=== PATIENT | female | born 1960 | race Caucasian/White ===

== ENCOUNTER 2017-11-12 05:31 | Inpatient (IN) | payer BC, OTHER ==
[2017-11-12] MEDS ORDERED: Albuterol 0.083% Inhal Sol (2.5 mg/3 mL) UD INH STA ×2 (06:02→06:08)
[2017-11-12] MEDS ORDERED: Magnesium Sulfate 2 GM in Sodium Chloride 0.9% 100 ML IVPB ONE (06:02)
[2017-11-12] MEDS: Albuterol-Ipratrop 3 mg / 0.5 (3 ml) UD IH STA ×2 (06:11→06:33)
--- NOTE | 2017-11-12 06:13 | ED PDOC ---
Arrival/HPI - General Chief Complaint: Shortness Of Breath Time Seen by Provider: 11/12/17 05:43 Historian: Patient - History of Present Illness Narrative History of Present Illness (Text): 11/12/17 06:11 A 57 year old female was brought in by EMS to the emergency department complaining of cough and nasal congestion. Patient saw Dr. Collins, who diagnosed patient with bronchitis 2 weeks ago and was given Zithromax and steroids. Reports improvement of symptoms. [place] [facility] [place] had a negative chest xray and was given Tessalon Perles for cough and Flonase inhaler for nose, notes she has been coughing since she [place] [facility] [place] Patient reports she hasn't been able to sleep. Reports to using rescue inhaler with no relief. Patient denies any other complaints at this time. Time/Duration: Other (yesterday) Symptom Onset: Sudden Symptom Course: Unchanged Activities at Onset: Rest Past Medical History - Provider Review Nursing Documentation Reviewed: Yes - Infectious Disease Hx of Infectious Diseases: None - Tetanus Immunization Tetanus Immunization: Unknown - Cardiac Hx Cardiac Disorders: No - Pulmonary Hx Respiratory Disorders: Yes Hx Asthma: Yes Hx Bronchitis: Yes - Neurological HX Cerebrovascular Accident: Yes (1 year ago) Hx Seizures: Yes - HEENT Hx HEENT Disorder: No - Renal Hx Renal Disorder: No - Endocrine/Metabolic Hx Endocrine Disorders: No - Hematological/Oncological Hx Blood Disorders: No - Integumentary Hx Dermatological Disorder: No - Musculoskeletal/Rheumatological Hx Falls: Yes (this past winter fell once) - Gastrointestinal Hx Gastrointestinal Disorders: No - Genitourinary/Gynecological Hx Genitourinary Disorders: No - Psychiatric Hx Psychophysiologic Disorder: No Hx Substance Use: No - Past Surgical History Past Surgical History: No Previous - Suicidal Assessment Feels Threatened In Home Enviroment: No Family/Social History - Physician Review Nursing Documentation Reviewed: Yes Family/Social History: No Known Family HX Smoking Status: Never Smoked Hx Alcohol Use: No Hx Substance Use: No Hx Substance Use Treatment: No Allergies/Home Meds Allergies/Adverse Reactions: Allergies Penicillins Adverse Reaction (Verified 11/12/17 05:48) ITCHING Sulfa (Sulfonamide Antibiotics) Adverse Reaction (Verified 11/12/17 05:48) NAUSEA Home Medications: Home Meds Medication Instructions Recorded Confirmed Oxcarbazepine [Trileptal] 300 mg PO BID 03/28/15 11/12/17 Apixaban [Eliquis] 5 mg PO Q3 11/12/17 11/12/17 Ergocalciferol [Drisdol 50,000 1 cap PO QWK 11/12/17 11/12/17 Intl Units Cap] Folic Acid [Folic Acid] 1 mg PO DAILY 11/12/17 11/12/17 Hydroxychloroquine Sulfate 200 mg PO BID 11/12/17 11/12/17 [Plaquenil] Montelukast [Singulair] 10 mg PO DAILY 11/12/17 11/12/17 predniSONE [predniSONE Tab] 1 mg PO DAILY 11/12/17 11/12/17 predniSONE [predniSONE Tab] 5 mg PO DAILY 11/12/17 11/12/17 Review of Systems - Physician Review All systems were reviewed & negative as marked: Yes - Review of Systems ENT: Sinus Congestion Respiratory: Cough Physical Exam Vital Signs Reviewed: Yes Vital Signs Temp Pulse Resp BP Pulse Ox 11/12/17 05:31 98.3 F 104 H 20 154/101 H 97 Temperature: Afebrile Blood Pressure: Hypertensive Pulse: Tachycardic Respiratory Rate: Normal Appearance: Positive for: Well-Appearing, Non-Toxic, Comfortable Pain Distress: None Mental Status: Positive for: Alert and Oriented X 3 - Systems Exam Head: Present: Atraumatic, Normocephalic Pupils: Present: PERRL Extroacular Muscles: Present: EOMI Conjunctiva: Present: Normal Mouth: Present: Moist Mucous Membranes Neck: Present: Normal Range of Motion Respiratory/Chest: Present: Wheezes (all lung srinivasan, front and back). No: Respiratory Distress, Accessory Muscle Use Cardiovascular: Present: Regular Rate and Rhythm, Normal S1, S2. No: Murmurs Abdomen: Present: Normal Bowel Sounds. No: Tenderness, Distention, Peritoneal Signs Back: Present: Normal Inspection Upper Extremity: Present: Normal Inspection. No: Cyanosis, Edema Lower Extremity: Present: Normal Inspection. No: Edema Neurological: Present: GCS=15, CN II-XII Intact, Speech Normal Skin: Present: Warm, Dry, Normal Color. No: Rashes Psychiatric: Present: Alert, Oriented x 3, Normal Insight, Normal Concentration Medical Decision Making ED Course and Treatment: 11/12/17 06:09 Impression: A 57 year old female with cough and nasal congestion. Plan: -- EKG -- chest xray -- labs -- Albuterol, Duoneb, Solumedrol, IV fluids -- Reassess and disposition Prior Visits: Notes and results from previous visits were reviewed. Patient was last seen in the emergency department on 04/02/15 for evaluation of shortness of breath. Progress Notes: 11/12/17 06:30 EKG: Ordered, reviewed, and independently interpreted the EKG. Rate : 101 BPM Rhythm : sinus tachycardia Interpretation : Normal intervals, normal axis 11/12/17 07:00 Case signed out to Dr. Burciaga, awaiting clinical improvement and response indications. - Lab Interpretations I have reviewed the lab results: Yes - RAD Interpretation Radiology Orders: 11/12/17 06:02 CHEST TWO VIEWS (PA/LAT) [RAD] Stat - EKG Interpretation Interpreted by ED Physician: Yes Type: 12 lead EKG - Medication Orders Current Medication Orders: Discontinued Medications Albuterol Sulfate (Albuterol 0.083% Inhal Acssandra (2.5 Mg/3 Ml) Ud) 2.5 mg INH STAT STA Stop: 11/12/17 06:03 Last Admin: 11/12/17 06:32 Dose: 2.5 mg Albuterol Sulfate (Albuterol 0.083% Inhal Cassandra (2.5 Mg/3 Ml) Ud) 2.5 mg INH STAT STA Stop: 11/12/17 06:09 Albuterol/Ipratropium (Duoneb 3 Mg/0.5 Mg (3 Ml) Ud) 3 ml IH STAT STA Stop: 11/12/17 06:03 Last Admin: 11/12/17 06:11 Dose: 3 ml Magnesium Sulfate 2 gm/ Sodium (Chloride) 104 mls @ 102 mls/hr IVPB ONCE ONE Stop: 11/12/17 07:03 Last Admin: 11/12/17 06:15 Dose: 102 mls/hr eMAR Start Stop Document 11/12/17 06:15 JOL (Rec: 11/12/17 06:32 JOL [id number]) Intravenous Solution Start Date 11/12/17 Start Time 06:15 End Date 11/12/17 End time 07:17 Total Infusion Time 62 Methylprednisolone (Solu-Medrol) 125 mg IVP STAT STA Stop: 11/12/17 06:03 Last Admin: 11/12/17 06:15 Dose: 125 mg IVP Administration Document 11/12/17 06:15 HIRAM (Rec: 11/12/17 06:32 HIRAM [id number]) Charges for Administration # of IVP Administrations 1 - PA / FINANCE EXECUTIVE / Resident Statement MD/DO has reviewed & agrees with the documentation as recorded. - Scribe Statement The provider has reviewed the documentation as recorded by the Peggyibdre Jasmine Provider Scribe Attestation: All medical record entries made by the Peggyibdre were at my direction and personally dictated by me. I have reviewed the chart and agree that the record accurately reflects my personal performance of the history, physical exam, medical decision making, and the department course for this patient. I have also personally directed, reviewed, and agree with the discharge instructions and disposition. Disposition/Present on Arrival - Present on Arrival Any Indicators Present on Arrival: No History of DVT/PE: No History of Uncontrolled Diabetes: No Urinary Catheter: No History of Decub. Ulcer: No History Surgical Site Infection Following: None - Disposition Have Diagnosis and Disposition been Completed?: Yes Diagnosis: Bronchospasm with bronchitis, acute Disposition: HOSPITALIZED Disposition Time: 06:48 Patient Plan: Admission Condition: IMPROVED Referrals: Javid Collins MD [Primary Care Provider] - Follow up with primary Forms: [place] CK[employer] ([place])
[2017-11-12 06:59] LABS: VENOUS BLOOD GAS BASE EXCESS 4.3 mmol/L (0.0-2.0); VENOUS BLOOD GAS PO2 31 mm/Hg (30-55); VENOUS BLOOD PH 7.34 (7.32-7.43)
[2017-11-12 07:03] LABS: ALB/GLOB RATIO 1.3 (1.1-1.8); ALT/SGPT 40 U/L (7-56); AST/SGOT 32 U/L (14-36); BLOOD UREA NITROGEN 11 mg/dL (7-21); CALCIUM 9.2 mg/dL (8.4-10.5); GFR AFRICAN-AMERICAN > 60; GFR NON-AFRICAN AMERICAN > 60
[2017-11-12 07:07] LABS: B-TYPE NATRIURETIC PEPTIDE 38.3 pg/mL (0-450); TROPONIN I < 0.01 ng/mL
[2017-11-12 07:09] LABS: D DIMER < 200 ng/mL (0-243); INR 2.25 (0.93-1.08); PROTHROMBIN TIME 26.3 SECONDS (9.4-12.5)
[2017-11-12 07:13] LABS: BASO # 0.03 K/mm3 (0.0-2.0); BASO % 0.4 % (0.0-3.0); EOS # 0.3 (0.0-0.7); EOS % 3.8 % (1.5-5.0); GRAN # 5.7 (1.4-6.5); GRAN % 75.5 % (50.0-68.0); LYMPH # 0.8 (1.2-3.4); LYMPH % 10.9 % (22.0-35.0); MEAN CELL VOLUME 91.8 fl (80.0-105.0); MEAN CORPUSCULAR HEMOGLOBIN 30.2 pg (25.0-35.0); MEAN CORPUSCULAR HGB CONC 32.9 g/dl (31.0-37.0); MEAN PLATELET VOLUME 9.4 fl (7.0-11.0); MONO # 0.7 (0.1-0.6); MONO % 9.4 % (1.0-6.0); RBC 4.64 10^6/uL (3.5-6.1); RED CELL DISTRIBUTION WIDTH 13.7 % (11.5-14.5); WHITE BLOOD COUNT 7.6 10^3/ul (4.5-11.0)
--- NOTE | 2017-11-12 08:53 | RAD ---
HISTORY: wheezing all lung srinivasan COMPARISON: 04/02/2015 TECHNIQUE: Chest PA and lateral FINDINGS: LUNGS: No active pulmonary disease. PLEURA: No significant pleural effusion identified. No pneumothorax apparent. CARDIOVASCULAR: Normal. OSSEOUS STRUCTURES: No significant abnormalities. VISUALIZED UPPER ABDOMEN: Normal. OTHER FINDINGS: None. IMPRESSION: No active disease.
[2017-11-12 09:55] VITALS: BMI 29.2
[2017-11-12] MEDS: Albuterol-Ipratrop 3 mg / 0.5 (3 ml) UD IH SCH ×2 (13:26→20:00)
[2017-11-12] MEDS ORDERED: Albuterol 0.083% Inhal Sol (2.5 mg/3 mL) UD ONE (17:33)
--- NOTE | 2017-11-12 18:11 | CARD ---
APPROVED REPORT EKG Measurement Heart [id number] <Conclusion> Sinus tachycardia Cannot rule out Inferior infarct, age undetermined Abnormal ECG
--- NOTE | 2017-11-12 18:19 | HP ---
CHIEF COMPLAINT AND HISTORY OF PRESENT ILLNESS: This is a 57-year-old female who is coming to the hospital because of cough, congestion, and wheezing. She states that she was treated for bronchitis by me about 2 weeks ago with antibiotics and steroids. She said that she did improve, but then her symptoms worsened. She denies any chest pain or shortness of breath. She said that she had gone to [facility] satellite ER and was discharged. She was given Tessalon Perles for cough and Flonase inhaler. She has not been able to sleep well because of the coughing and the congestion. She has no complaints of any abdominal pain, no back pain. No dysuria, frequency, or nocturia. REVIEW OF SYSTEMS: All other review of symptoms are within normal limits, except what is mentioned. ALLERGIES: PENICILLIN AND SULFA. HOME MEDICATIONS: Have been reviewed. She is on Coumadin for CVA, she states. PAST MEDICAL HISTORY: Seizure disorder, CVA. SOCIAL HISTORY: The patient does not smoke or drink. FAMILY HISTORY: Mother is alive at 94 - she has diabetes. Father is alive and has coronary artery disease, he is in his mid-90s. PHYSICAL EXAMINATION: VITAL SIGNS: Temperature of 98.3, pulse of 104, blood pressure 120/79, respirations 18, O2 saturation 98%, height is 5 feet 6 inches, weight is 181 pounds, and BMI is 29.2. GENERAL: The patient lying in bed, uncomfortable, and in no acute distress. HEENT: Atraumatic and normocephalic. Anicteric sclerae. Moist mucosa. Finger conjunctivae. No oral lesions. NECK: No JVD, anterior and posterior adenopathy, thyromegaly, or bruits. CARDIOVASCULAR: S1 and S2 regular. No murmur, rubs, or gallop. LUNGS: Decreased air entry. No rales. A few rhonchi. No wheezing. ABDOMEN: Bowel sounds are positive. Soft, nontender and nondistended. No hepatosplenomegaly. No rebound and no guarding EXTREMITIES: No cyanosis, clubbing, or edema. NEUROLOGIC: No facial asymmetry. Tongue is midline. No uvula deviation. Power is 5/5 upper extremity and lower extremity. Sensation intact in upper extremity and lower extremity. PSYCHIATRIC: She is awake, alert and oriented x3. No anxiety or depression. She has normal affect. GENITOURINARY: No CVA tenderness. VASCULAR: 2+ pulses in the carotid pulses and pedal pulses. SKIN: No erythema or nodules. SPINE: Shows normal curvature. LABORATORY DATA: White count of 7.6, hemoglobin 14. INR is 2.25. ABG does show a pH of 7.34, pCO2 is 59, and the venous PaO2 is 31. Chemistry shows sodium 143, potassium is 3.9. LDH is 634. The patient's troponin is 0.01. EKG shows a heart rate of 101, sinus tachycardia. Normal axis. Chest x-ray done shows no active disease. ASSESSMENT: 1. Acute asthma exacerbation. 2. Seizure disorder. PLAN: The patient is currently comfortable. She is having wheezing. She has shortness of breath with congestion. She has an acute asthma exacerbation. The patient wants to continue with Coumadin. She is going to be on nebulizer treatments, on DuoNebs. She is on montelukast. She is on steroids. She wants to continue with her oxcarbazepine for seizures. We will get Dr. Barrios to evaluate. Javid Collins MD
[2017-11-12] MEDS: Albuterol 0.083% Inhal Sol (2.5 mg/3 mL) UD INH PRN (23:54)
[2017-11-13] MEDS: Albuterol 0.083% Inhal Sol (2.5 mg/3 mL) UD INH PRN (03:47)
[2017-11-13 07:02] LABS: HEMOGLOBIN 13.3 g/dL (12.0-16.0); MEAN CELL VOLUME 91.3 fl (80.0-105.0); MEAN CORPUSCULAR HEMOGLOBIN 29.6 pg (25.0-35.0); MEAN CORPUSCULAR HGB CONC 32.4 g/dl (31.0-37.0); MEAN PLATELET VOLUME 9.5 fl (7.0-11.0); RBC 4.5 10^6/uL (3.5-6.1); RED CELL DISTRIBUTION WIDTH 13.6 % (11.5-14.5); WHITE BLOOD COUNT 10.4 10^3/ul (4.5-11.0)
[2017-11-13] MEDS: Albuterol-Ipratrop 3 mg / 0.5 (3 ml) UD IH SCH ×3 (08:48→19:56)
--- NOTE | 2017-11-13 09:05 | CON ---
DATE: 11/12/2017 PULMONARY CONSULTATION REFERRING PHYSICIAN: Javid Collins MD REASON FOR CONSULTATION: Exacerbation of chronic obstructive lung disease. HISTORY OF PRESENT ILLNESS: This is a 57-year-old female with past medical history significant for seizure disorder, also have a history of stroke, carry a diagnosis of bronchitis, started symptom a few weeks ago, was treated with p.o. and inhaled bronchodilators without much response, also seen by [facility], was given benzodiazepines and bronchodilator with persistent symptom, came to [facility] ER where she received IV and inhaled bronchodilator, admitted for continued shortness of breath. Presently lying in the bed, has some cough and shortness of breath. No hemoptysis, no hematemesis, no hematuria, no diarrhea reported. Admit to have snoring, daytime sleepy and tired. No nausea, no vomiting or diarrhea. No leg pain or leg swelling. PAST MEDICAL HISTORY: Seizure disorder, CVA, bronchitis. ALLERGIES: SULFA AND PENICILLIN. SOCIAL HISTORY: Nonsmoker, nondrinker. FAMILY HISTORY: Positive for diabetes, coronary artery disease. MEDICATIONS: She is on Coumadin, DuoNeb, Singulair, Solu-Medrol 40 mg daily, Tessalon Perles 100 mg two times a day and Trileptal 300 mg twice a day. REVIEW OF SYSTEMS: No headache, no rhinitis. Has cough, clear sputum, wheezing, shortness of breath, chest pain. No nausea, no vomiting. No diarrhea. No leg pain,or leg swelling. Admit to have snoring, daytime sleepy and tired. PHYSICAL EXAMINATION: GENERAL: Lying in the bed, no acute distress. VITAL SIGNS: Temperature is 98, heart rate 104, respiratory rate is 18, blood pressure 128/79, pulse ox 98% on nasal cannula. HEENT: Moist mucous membrane. Crowded airway. Mallampati score is IV. NECK: Supple. No JVD. LUNGS: Has a prolonged expiratory phase with some wheezing. HEART: S1 and S2. ABDOMEN: Soft, nontender, no organomegaly. EXTREMITIES: No edema. NEUROLOGIC: Awake, alert, follows simple commands. LABORATORY DATA: Shows hemoglobin 14.0, hematocrit 42.6, WBC 7.6, platelet is 202. INR is 2.25. VBG show pH 7.34, pCO2 59, O2 31. Sodium 143, potassium 3.9, chloride 103, bicarbonate 29, BUN 15, creatinine 0.7, glucose 90, calcium is 9.2. Total bili 0.3, AST 32, ALT 40, alk phos is 85, total protein 7.0, albumin is 4.0. Troponin less than 0.01. less than 3. Chest x-ray done on admission in ER, which shows no infiltrate or effusion. IMPRESSION AND PLAN: Acute bronchitis, probably chronic obstructive lung disease, history of stroke, seizure disorder, may have a component of sleep apnea syndrome. Agree with Dr. Collins with the present management. Continue intravenous and inhaled bronchodilator. Continue antiseizure medication. May start doxycycline. Gastroesophageal reflux disease precaution, deep venous thrombosis prophylaxis. Outpatient sleep study and pulmonary function test. Thank you and we will follow with you. Aurea Barrios MD
[2017-11-13] MEDS ORDERED: MethylPREDNISolone 40 mg Vial IVP SCH (10:00)
--- NOTE | 2017-11-13 11:08 | PN ---
DATE: 11/13/2017 SUBJECTIVE: The patient has no complaints of any chest pain, no shortness of breath, no headaches. She states she is breathing better. PHYSICAL EXAMINATION: VITAL SIGNS: Temperature is 98.3, pulse of 104, respirations 18, blood pressure 128/79. GENERAL: The patient is lying in bed, flat, comfortable. HEENT: No oral lesion. Anicteric sclerae. Moist mucosa. NECK: No JVD, adenopathy, or thyromegaly. CARDIOVASCULAR: S1 and S2, regular. No murmurs, rubs, or gallops. LUNGS: Good bilateral air entry, mild wheezing. No rhonchi or rales. ABDOMEN: Bowel sounds are positive. Soft, nontender and nondistended. EXTREMITIES: No cyanosis, clubbing or edema. LABS: Pending. ASSESSMENT: 1. Acute asthma exacerbation. 2. Seizure disorder. PLAN: The patient is on Coumadin. She states for her CVA, she is on for long time, we will continue it. She is receiving nebulizer treatments. She is on Solu-Medrol for her asthma. She is on Tessalon Perles for her cough. She is on Trileptal for her seizures. She is on regular diet. The patient is followed by Pulmonary. Javid Collins MD
[2017-11-13] MEDS: MethylPREDNISolone 40 mg Vial IVP SCH (21:01)
[2017-11-14] MEDS: Albuterol 0.083% Inhal Sol (2.5 mg/3 mL) UD INH PRN (01:15)
[2017-11-14] MEDS: Albuterol-Ipratrop 3 mg / 0.5 (3 ml) UD IH SCH ×3 (07:06→19:33)
[2017-11-14] MEDS: MethylPREDNISolone 40 mg Vial IVP SCH ×2 (09:29→21:08)
--- NOTE | 2017-11-14 14:55 | PN ---
DATE: 11/14/2017 PULMONARY PROGRESS NOTE REFERRING PHYSICIAN: Javid Collins MD SUBJECTIVE: Patient is sitting up in the bed. Night was unremarkable. Feels better. Cough and shortness of breath are better. No nausea, no vomiting, no diarrhea. No leg pain or leg swelling. Admits to have snoring nighttime, daytime sleepy and tired. OBJECTIVE: GENERAL: In no acute distress. VITAL SIGNS: Temperature is 98, T-max is 100.9, heart rate is 91, respiratory rate 22, blood pressure 130/90, pulse ox 95% on 2 liter nasal cannula. HEENT: Moist mucous membranes. Crowded airway. NECK: Supple. No JVD. LUNGS: Has scattered rhonchi, prolonged expiratory phase. HEART: S1, S2. ABDOMEN: Soft, nontender, no organomegaly. EXTREMITIES: No edema. NEUROLOGICAL: Awake, alert, follows simple commands. MEDICATIONS: She is on Wellbutrin q. 2 hours p.r.n. and also on Coumadin 7.5 mg, doxycycline 100 mg twice a day, DuoNeb q. 8 hours round the clock, Singulair 10 mg daily, Solu-Medrol 40 mg q. 12 hours, Tessalon Perles 100 mg three times a day and Trileptal 300 mg twice a day. LABORATORY DATA: Reviewed and noted. No new lab is available since yesterday. Microbiology: Blood culture has been negative. IMPRESSION AND PLAN: Acute bronchitis, probably chronic obstructive lung disease, history of stroke, seizure disorder, this may be a component of sleep apnea syndrome. Agree with Dr. Collins the present management. Continue intravenous and inhaled bronchodilator. next 5 to 6 days. Antibiotics for another 5 days. Outpatient pulmonary function test and attend a sleep study. Sleep apnea precaution. Thank you and we will follow with you. Aurea Barrios MD
--- NOTE | 2017-11-14 15:56 | PN ---
DATE: 11/14/2017 SUBJECTIVE: The patient has no complaints of any chest pain. She states that the shortness of breath is improving. No headaches. No dizziness. No nausea. PHYSICAL EXAMINATION: VITAL SIGNS: Temperature is 97.9, pulse of 91, blood pressure is 130/90, respirations 22. GENERAL: The patient is lying in bed, flat, comfortable. HEENT: No oral lesion. Anicteric sclerae. Moist mucosa. NECK: No JVD, adenopathy, or thyromegaly. CARDIOVASCULAR: S1 and S2, regular. No murmurs, rubs, or gallops. LUNGS: Clear to auscultation bilaterally. No wheeze, rales, or rhonchi. ABDOMEN: Bowel sounds are positive, soft, nontender and nondistended. EXTREMITIES: No cyanosis, clubbing or edema. LABORATORY DATA: White count of 10.4. ASSESSMENT: 1. Acute asthma. 2. Seizure disorder. 3. History of cerebrovascular accident. PLAN: The patient is on doxycycline for antibiotics. She is on Coumadin. She is on Solu-Medrol. She is on Tessalon Perles. She is on Trileptal for seizures. The patient states that she is feeling better, but still she gets shortness of breath at times. We will continue her current care. Javid Collins MD
[2017-11-14 18:49] VITALS: PULSE 86; RESP 20
[2017-11-15] MEDS: Albuterol-Ipratrop 3 mg / 0.5 (3 ml) UD IH SCH (07:33)
[2017-11-15 07:53] VITALS: BP 128/88; TEMP 99.8; O2SAT 95
[2017-11-15] MEDS: MethylPREDNISolone 40 mg Vial IVP SCH (09:50)
--- NOTE | 2017-11-16 07:00 | DS ---
HOSPITAL COURSE: This is a 57-year-old female who had come into the hospital because of an acute asthma exacerbation. She was not doing well as an outpatient, failed outpatient treatment. She was given IV steroids and nebulizer treatment. She has had improvement of her symptoms. She was seen by Pulmonary, Dr. Barrios. She had no complaints of any headache. She states she is able to ambulate better and her shortness of breath has improved significantly. She states she is ready to be discharged home. PHYSICAL EXAMINATION: VITAL SIGNS: Temperature is 99.8, pulse of 86, blood pressure 120/88, respirations 20, O2 saturation 95%. GENERAL: The patient is lying in bed, flat, comfortable. HEENT: No oral lesion. Anicteric sclerae. Moist mucosa. NECK: No JVD, adenopathy, or thyromegaly. CARDIOVASCULAR: S1 and S2, regular. No murmurs, rubs, or gallops. LUNGS: Clear to auscultation bilaterally. No wheeze, rales, or rhonchi. ABDOMEN: Bowel sounds are positive, soft, nontender and nondistended. EXTREMITIES: No cyanosis, clubbing, or edema. ASSESSMENT: 1. Acute asthma exacerbation. 2. Seizure disorder. 3. History of cerebrovascular accident. PLAN: The patient is going to continue with Coumadin. The patient is on doxycycline for antibiotics. She is on Solu-Medrol, I will change that to p.o. steroids. She is going to be on Proventil at home as well. She has a nebulizer, I advised her to use the nebulizer two to three times a day. CONDITION: Stable. ACTIVITY: Increased as tolerated. Javid Collins MD
--- NOTE | 2017-11-16 09:32 | PN ---
DATE: 11/13/2017 PULMONARY PROGRESS NOTE REFERRING PHYSICIAN: Javid Collins MD. SUBJECTIVE: She is lying in the bed, head at 45 degrees. Night was unremarkable. Still has a cough. No chest pain. No nausea. No vomiting. No diarrhea, leg pain, or leg swelling. Admitted to have snoring at nighttime and daytime sleep . PHYSICAL EXAMINATION: GENERAL: In no acute distress. VITAL SIGNS: Temperature is 98, heart rate is 111, respiratory rate is 20, blood pressure 130/90, pulse ox 97% on 2 liter nasal cannula. HEENT: Moist mucous membranes. Crowded airway. NECK: Supple. No JVD. LUNGS: Have a fair airflow with a prolonged expiratory phase with some wheezing. HEART: S1 and S2. ABDOMEN: Soft, nontender. No organomegaly. EXTREMITIES: There is no edema. NEUROLOGICAL: Awake and alert. Follows simple command. MEDICATIONS: She is on albuterol/Atrovent nebulizer q.2h., Coumadin 7.5 mg will be given today, doxycycline 100 mg twice a day, Singulair 10 mg daily, Solu-Medrol 40 mg daily, Tessalon Pearls 100 mg three times a day, Trileptal 300 mg twice a day. LABORATORY DATA: Shows hemoglobin 13.3, hematocrit 41.1, WBC 10.4, platelets 175. INR 2.25. Sodium 143 yesterday. Microbiology: Blood cultures have been negative. IMPRESSION AND PLAN: Acute bronchitis, probably chronic obstructive lung disease, history of stroke, seizure disorder, early sleep apnea syndrome. We will increase Solu-Medrol to 40 twice a day. Continue antibiotics, inhaled bronchodilator, gastric prophylaxis, DVT prophylaxis, avoid sedation, sleep apnea precaution, outpatient sleep study and PFT. Thank you and we will follow with you. Aurea Barrios MD
== END 2017-11-15 12:58 | disposition home or self-care (01) | DRG 203 ==
LOC: ED 05:31 → ERH 06:57 → 3RNO 08:14
PROVIDERS: ADMIT Internal Medicine Nephrology; ATTEND Internal Medicine Nephrology
PROC: 3E0F7GC Introduction of Other Therapeutic Substance into Respiratory Tract, Via Natural or Artificial Opening (ICD-10-PCS; principal; 2017-11-12)
DX: J45.901 Unspecified asthma with (acute) exacerbation (principal); G40.909 Epilepsy, unspecified, not intractable, without status epilepticus; J20.9 Acute bronchitis, unspecified; R06.83 Snoring; G47.30 Sleep apnea, unspecified; Z79.01 Long term (current) use of anticoagulants; Z86.73 Personal history of transient ischemic attack (TIA), and cerebral infarction without residual deficits; Z82.49 Family history of ischemic heart disease and other diseases of the circulatory system; Z83.3 Family history of diabetes mellitus